=== PATIENT | female | born 1935 | race Caucasian/White ===

== ENCOUNTER 2017-11-14 15:02 | Emergency (ER) | payer SELFPAY ==
[2017-11-14 17:08] LABS: BASOPHIL % 0.4 % (0-2); PLATELET COUNT 254 x10^3mcL (130-400); RED CELL DISTRIBUTION WIDTH 13.5 % (11.5-14.5)
[2017-11-14 17:19] LABS: CALCIUM 10.2 mg/dL (8.5-10.1); CARBON DIOXIDE 28.2 mmol/L (21-32); CHLORIDE SERUM 101 mmol/L (98-107); CREATININE SERUM 0.7 mg/dL (0.6-1.0); GLUCOSE SERUM 158 mg/dL (74-106); POTASSIUM SERUM 3.3 mmol/L (3.5-5.1); SODIUM SERUM 138 mmol/L (136-145)
[2017-11-14 17:27] LABS: ALBUMIN 3.8 g/dL (3.4-5.0); ALKALINE PHOSPHATASE 140 U/L (46-116); AST/SGOT 23 U/L (15-37); BILIRUBIN TOTAL 0.48 mg/dL (0.20-1.00); TOTAL PROTEIN, SERUM 7.5 g/dL (6.4-8.2)
[2017-11-14 17:43] LABS: microscopic required? YES; urine erythrocyte 2+ (NEGATIVE)
[2017-11-14 18:31] LABS: ALT/SGPT 26 U/L (14-59); FREE T4 1.18 ng/dL (0.76-1.46)
[2017-11-14 19:04] VITALS: BP 108/79
== END 2017-11-14 19:04 | disposition left against medical advice (07) ==
LOC: EDBD 15:02 → ED 15:02
PROVIDERS: Emergency Medicine
DX: R55 Syncope and collapse (principal); I10 Essential (primary) hypertension; E11.9 Type 2 diabetes mellitus without complications
CPT/HCPCS: 36415; 83880; 84439; 87804; Q0092